=== PATIENT | female | born 2000 | race Two or more races ===

== ENCOUNTER 2023-08-03 07:23 | Emergency (ER) | payer OTHER | END 2023-08-03 09:01 | disposition home or self-care (01) | LOC: FB.ED 07:23 | DX: S93.401A Sprain of unspecified ligament of right ankle, initial encounter (principal); Z88.8 Allergy status to other drugs, medicaments and biological substances; X50.0XXA Overexertion from strenuous movement or load, initial encounter | CPT/HCPCS: 73610-RT; 99283 ==